=== PATIENT | female | born 1950 | race Two or more races ===

== ENCOUNTER 2022-07-16 11:35 | Emergency (ER) | payer OTHER ==
[~2022-07-16] VITALS: Ht 144.8 cm; Wt 73.9 kg
[~2022-07-16 11:35] MED LIST: DICY20TA PO; PHENERGAN25 MG PO
== END 2022-07-16 18:49 | disposition home or self-care (01) ==
LOC: ER 11:35
DX: R07.9 Chest pain, unspecified (principal); B02.9 Zoster without complications; I10 Essential (primary) hypertension; Z88.6 Allergy status to analgesic agent; Z20.822 Contact with and (suspected) exposure to COVID-19